=== PATIENT | male | born 1955 | race Caucasian/White ===

== ENCOUNTER 2017-02-12 20:35 | Emergency (ER) | payer MEDICARE, OTHER ==
[~2017-02-12] VITALS: Ht 182.9 cm; Wt 113.4 kg
[~2017-02-12 20:35] MED LIST: AMIO20TA PO; AMLO10TA2 PO; ATOR1TAB21 PO; CITA40TA4 PO; CLOTRIMAZOLE ANTI12 TOP; INSULANT SC; JANU100T PO; LEVO75TA34 PO; LISI-538 PO; LYRI100C10 PO; METF500T PO; MIRA3350 PO; PERC5TAB6 PO; TIZA4CAP3 PO; VITA100066 PO; VITMTA PO; XARE20TA PO
[2017-02-12] MEDS ORDERED: NOVOINJ3 (20:48)
[2017-02-12] MEDS ORDERED: CARB/LEVO PO (20:49)
[2017-02-12] MEDS ORDERED: NS 1,000 ML IV ONE (21:30)
[2017-02-12 21:40] LABS: CALCIUM OXALATE CRYSTALS SMALL
[2017-02-12] MEDS ORDERED: ONDANSETRON 4MG/2ML VIAL (J2405) IV ONE (21:45)
[2017-02-12 21:49] LABS: BASO # 0.1 K/mm3 (0.0-0.2); BASO % 0.4 % (0.0-1.0); EOS # 0.3 K/mm3 (0.0-0.50); EOS % 1.7 % (0.0-3.0); LARGE UNSTAINED CELL # 0.3 K/mm3 (0.0-0.4); LARGE UNSTAINED CELL % 1.6 % (0.0-4.0); LYMPH # 7.3 K/mm3 (1.5-4.5); LYMPH % 39.9 % (24.0-44.0); MEAN CORPUSCULAR HEMOGLOBIN 31.3 pg (27.0-33.0); MEAN CORPUSCULAR HGB CONC 33.9 g/dl (32.0-36.5); MEAN CORPUSCULAR VOLUME 92.3 fl (80.0-96.0); MONO # 0.5 K/mm3 (0.0-0.8); MONO % 2.8 % (0.0-5.0); NEUTROPHILS # 9.9 K/mm3 (1.8-7.7); NEUTROPHILS % 53.7 % (36.0-66.0); PLATELET COUNT, AUTOMATED 180 k/mm3 (150-450); RED CELL DISTRIBUTION WIDTH 13.2 % (11.5-14.5)
[2017-02-12 21:51] LABS: WHITE BLOOD COUNT 18.4 K/mm3 (4.0-10.0)
[2017-02-12 22:01] LABS: ALBUMIN 4.3 GM/DL (3.2-5.2); ALBUMIN/GLOBULIN RATIO 1.19 (1.00-1.93); ALKALINE PHOSPHATASE 146 U/L (45-117); ALT/SGPT 26 U/L (12-78); AMYLASE 41 U/L (25-115); ANION GAP 8 MEQ/L (8-16); AST/SGOT 54 U/L (15-37); BILIRUBIN,DIRECT 0.2 MG/DL (0.0-0.2); BILIRUBIN,TOTAL 0.6 MG/DL (0.2-1.0); BLOOD UREA NITROGEN 17 MG/DL (7-18); CALCIUM LEVEL 9.5 MG/DL (8.8-10.2); CARBON DIOXIDE LEVEL 22 MEQ/L (21-32); CHLORIDE LEVEL 107 MEQ/L (98-107); CREATININE FOR GFR 1.07 MG/DL (0.70-1.30); GLOMERULAR FILTRATION RATE > 60.0 (>49); GLUCOSE, FASTING 150 MG/DL (80-110); MAGNESIUM LEVEL 1.8 MG/DL (1.8-2.4); POTASSIUM SERUM 3.6 MEQ/L (3.5-5.1); SODIUM LEVEL 137 MEQ/L (136-145); TOTAL PROTEIN 7.9 GM/DL (6.4-8.2)
[2017-02-12] MEDS ORDERED: ZOFR4TAB3 PO (22:26)
[2017-02-12 22:48] VITALS: BP 160/74
== END 2017-02-12 23:00 | disposition home or self-care (01) ==
LOC: M ED 22:11
DX: R11.0 Nausea (principal); R19.7 Diarrhea, unspecified
CPT/HCPCS: 80048; 80076; 81001; 82150; 82550; 83690; 83735; 85025; 87507; 96361; 96374; 99283; J2405

== ENCOUNTER 2017-03-02 00:13 | Emergency (ER) | payer MEDICARE, BC, OTHER ==
[~2017-03-02] VITALS: Ht 182.9 cm; Wt 122.5 kg
[~2017-03-02 00:13] MED LIST changes: +CARB/LEVO PO; +NOVOINJ3 SC; +ZOFR4TAB3 PO
[2017-03-02 04:42] VITALS: BP 176/82
== END 2017-03-02 04:44 | disposition home or self-care (01) ==
LOC: EDBD 00:13 → M ED 01:15
DX: T38.3X5A Adverse effect of insulin and oral hypoglycemic [antidiabetic] drugs, initial encounter (principal)

== ENCOUNTER 2017-03-03 23:16 | Inpatient (IN) | payer MEDICARE, BC, OTHER ==
[~2017-03-03] VITALS: Ht 182.9 cm; Wt 119.8 kg
[2017-03-03] MEDS ORDERED: IPRATROPIUM 0.5MG/ALBUTEROL 2.5MG INH SOL UD 3ML (DUONEB)(J7620) As Ordered ONE (23:32)
[2017-03-03] MEDS: IPRATROPIUM 0.5MG/ALBUTEROL 2.5MG INH SOL UD 3ML (DUONEB)(J7620) NEB PRN ×2 (23:42→23:48)
[2017-03-03] MEDS ORDERED: NITROGLYCERIN 2% OINT 1 GM *U/D* PKT TOP ONE (23:45)
[2017-03-03 23:51] LABS: ABG BASE EXCESS 8.7 (-2.0-2.0); ABG HCO3 31.1 MEQ/L (22.0-26.0); ABG PARTIAL PRESSURE CO2 34.9 mmHg (35.0-45.0); ABG PARTIAL PRESSURE O2 91.6 mmHg (75.0-100.0); ABG STANDARD HCO3 32.4 MEQ/L (22.0-26.0); ABG TOTAL CO2 32.2 MEQ/L (23.0-31.0); ABG pH (ARTERIAL) 7.568 UNITS (7.350-7.450)
[2017-03-03 23:53] LABS: BASO % 0.2 % (0.0-1.0); EOS # 0.1 K/mm3 (0.0-0.50); EOS % 0.5 % (0.0-3.0); LARGE UNSTAINED CELL # 0.2 K/mm3 (0.0-0.4); LARGE UNSTAINED CELL % 1.4 % (0.0-4.0); LYMPH # 4.5 K/mm3 (1.5-4.5); LYMPH % 27.8 % (24.0-44.0); MEAN CORPUSCULAR HEMOGLOBIN 31.9 pg (27.0-33.0); MEAN CORPUSCULAR HGB CONC 32.9 g/dl (32.0-36.5); MEAN CORPUSCULAR VOLUME 96.9 fl (80.0-96.0); MONO # 0.3 K/mm3 (0.0-0.8); MONO % 2.1 % (0.0-5.0); NEUTROPHILS # 10.9 K/mm3 (1.8-7.7); NEUTROPHILS % 68.1 % (36.0-66.0); PLATELET COUNT, AUTOMATED 147 k/mm3 (150-450); RED CELL DISTRIBUTION WIDTH 14.2 % (11.5-14.5)
[2017-03-04] VITALS (7 sets, daily range): BP systolic 111–157; BP diastolic 52–74; O2SAT 93
[2017-03-04] MEDS: IPRATROPIUM 0.5MG/ALBUTEROL 2.5MG INH SOL UD 3ML (DUONEB)(J7620) NEB PRN
[2017-03-04 00:27] LABS: ANION GAP 7 MEQ/L (8-16); BLOOD UREA NITROGEN 14 MG/DL (7-18); CALCIUM LEVEL 8.2 MG/DL (8.8-10.2); CARBON DIOXIDE LEVEL 34 MEQ/L (21-32); CHLORIDE LEVEL 96 MEQ/L (98-107); CREATININE FOR GFR 0.88 MG/DL (0.70-1.30); GLOMERULAR FILTRATION RATE > 60.0 (>49); GLUCOSE, FASTING 186 MG/DL (80-110); POTASSIUM SERUM 3.1 MEQ/L (3.5-5.1); SODIUM LEVEL 137 MEQ/L (136-145)
[2017-03-04] MEDS ORDERED: ISOVUE-370 76% 100ML VIAL (Q9967) As Ordered ONE (01:14)
[2017-03-04] MEDS ORDERED: ACETAMINOPHEN TAB 650MG DOSE (2X325MG) As Ordered ONE (01:34)
[2017-03-04] MEDS ORDERED: ACETAMINOPHEN TAB 650MG DOSE (2X325MG) PO ONE (01:45)
--- NOTE | 2017-03-04 02:00 | REPUSA ---
CT angiogram of the chest Clinical statement: severe hypoxia and shortness of breath. Technique: Multiple axial CT images were obtained from the thoracic inlet through the upper abdomen a fter a bolus administration of nonionic intravenous contrast. Coronal and sagittal reconstructions we re also obtained. No comparison is available. Findings: The pulmonary arteries are well-opacified with contrast, with no intraluminal filling defec ts to suggest embolism. The thoracic aorta is unremarkable. Thyroid gland is within normal limits. Th ere is no thoracic lymphadenopathy. There are moderate sized bilateral pleural effusions, with assoc iated compressive atelectasis. Extensive bilateral infiltrates and patchy areas of consolidation are seen throughout the lungs. Limited imaging of the upper abdomen is unremarkable. There are no suspici ous osseous lesions. Impression: 1. No evidence of pulmonary embolism. 2. Diffuse, extensive bilateral infiltrates and consolidation. Although the findings could represent pneumonia. Pulmonary edema or inflammatory process such as ARDS could have this appearance. Clinica l correlation is recommended. 3. Moderate sized bilateral pleural effusions with adjacent compressive atelectasis.
[2017-03-04] MEDS ORDERED: PIPERACILLIN/TAZOBACTAM SOD 3.375 GM in D5W MINI-BAG PLUS 50 ML IV ONE (02:30)
[2017-03-04] MEDS ORDERED: FUROSEMIDE 40 MG/4 ML VIAL (J1940) IV ONE (02:30)
[2017-03-04] MEDS: IPRATROPIUM 0.5MG/ALBUTEROL 2.5MG INH SOL UD 3ML (DUONEB)(J7620) NEB SCH ×6 (02:34→19:59)
[2017-03-04] MEDS ORDERED: AMIO20TA PO (03:29)
[2017-03-04] MEDS ORDERED: CARB25TA PO (03:29)
[2017-03-04] MEDS ORDERED: METO25TA74 PO (03:29)
[2017-03-04] MEDS ORDERED: ONDANSETRON 4MG/2ML VIAL (J2405) IV PRN (03:45)
[2017-03-04] MEDS ORDERED: BISACODYL 10 MG SUPP PR PRN (03:45)
[2017-03-04] MEDS ORDERED: POTASSIUM CHLORIDE 10 MEQ SR TABLET PO ONE ×2 (03:45→14:30)
[2017-03-04] MEDS ORDERED: ALBUTEROL SULFATE 2.5 MG/0.5 ML INH NEB SOLN NEB PRN (04:15)
[2017-03-04] MEDS: LEVOTHYROXINE 0.075 MG TAB (75 MCG) PO SCH (05:28)
[2017-03-04 06:51] LABS: BASO % 0.3 % (0.0-1.0); EOS # 0.2 K/mm3 (0.0-0.50); EOS % 1.2 % (0.0-3.0); LARGE UNSTAINED CELL # 0.2 K/mm3 (0.0-0.4); LARGE UNSTAINED CELL % 1.4 % (0.0-4.0); LYMPH # 3.7 K/mm3 (1.5-4.5); MEAN CORPUSCULAR HEMOGLOBIN 32.5 pg (27.0-33.0); MEAN CORPUSCULAR HGB CONC 33.8 g/dl (32.0-36.5); MEAN CORPUSCULAR VOLUME 95.9 fl (80.0-96.0); MONO # 0.4 K/mm3 (0.0-0.8); MONO % 2.5 % (0.0-5.0); NEUTROPHILS # 9.4 K/mm3 (1.8-7.7); NEUTROPHILS % 67.6 % (36.0-66.0); PLATELET COUNT, AUTOMATED 141 k/mm3 (150-450); RED CELL DISTRIBUTION WIDTH 14.3 % (11.5-14.5); WHITE BLOOD COUNT 13.8 K/mm3 (4.0-10.0)
[2017-03-04 07:21] LABS: ALBUMIN 2.1 GM/DL (3.2-5.2); ALBUMIN/GLOBULIN RATIO 0.54 (1.00-1.93); ALKALINE PHOSPHATASE 98 U/L (45-117); ALT/SGPT 34 U/L (12-78); ANION GAP 7 MEQ/L (8-16); AST/SGOT 27 U/L (15-37); BILIRUBIN,TOTAL 0.9 MG/DL (0.2-1.0); BLOOD UREA NITROGEN 13 MG/DL (7-18); CALCIUM LEVEL 7.5 MG/DL (8.8-10.2); CARBON DIOXIDE LEVEL 35 MEQ/L (21-32); CHLORIDE LEVEL 97 MEQ/L (98-107); CREATININE FOR GFR 0.96 MG/DL (0.70-1.30); GLOMERULAR FILTRATION RATE > 60.0 (>49); GLUCOSE, FASTING 193 MG/DL (80-110); SODIUM LEVEL 139 MEQ/L (136-145)
[2017-03-04 07:34] LABS: POTASSIUM SERUM 2.8 MEQ/L (3.5-5.1)
[2017-03-04] MEDS: POTASSIUM CHLORIDE 10 MEQ SR TABLET PO SCH ×2 (07:51→21:30)
--- NOTE | 2017-03-04 08:05 | IPNPDOC ---
Subjective Date Seen The patient was seen on 03/04/17. Subjective Chief Complaint/HPI The patient is a 62-year-old male admitted with a reason for visit of Acute Respiratory Failure W Hypoxia. General: Denies: ROS Unobtainable, Chills, Night Sweats, Fatigue, Malaise, Normal Appetite, Other Symptoms Constitutional: Denies: Chills, Fever, Malaise, Night Sweats, Weakness, Fatigue , Weight Loss, Lethargy, Other Eyes: Denies: Pain, Vision change, Conjunctivae inflammation, Eyelid inflammation, Redness, Other ENT: Denies: Head Aches, Ear Pain, Dysphagia, Sinus Congestion, Post Nasal Drip , Sore Throat, Epistaxis, Other Symptoms Skin: Denies: Rash, Lesions, Jaundice, Bruising, Itching, Dry, Breakdown, Nail Changes, Other Pulmonary: Reports: Dyspnea, Cough, Denies: Pleuritic Chest Pain, Other Symptoms Cardiovascular: Denies: Chest Pain, Palpitations, Orthopnea, Paroxysmal Noc. Dyspnea, Edema, Lt Headedness, Other Symptoms Gastrointestinal: Denies: Nausea, Vomiting, Abdominal Pain, Diarrhea, Constipation, Melena, Hematochezia, Other Symptoms Objective Physical Examination General Exam: Positive: Alert, Cooperative, No Acute Distress Eye Exam: Positive: PERRLA, Conjunctiva & lids normal, EOMI, Negative: Sclera icteric ENT Exam: Positive: Atraumatic Neck Exam: Positive: Supple Chest Exam: Positive: Normal air movement (b/l basilar crackles), Other Heart Exam: Positive: Rate Normal, Irregular Rhythm Telemetry: Positive: Atrial fibrillation Abdomen Exam: Positive: Normal bowel sounds, Soft, Other (obese), Negative: Tenderness Extremity Exam: Positive: Edema Psych Exam: Positive: Mental status NL, Mood NL, Oriented x 3 Assessment /Plan Problems (1) CHF exacerbation Status: Acute Response to Treatment: Improving Discussed With: Patient Problem Specific Plan: Monitor Clinically, Repeat Labs, Repeat Tests Problem Text: iv lasix, i/o's, daily weights, echo pending patient admits to increased fluid intake over last week states had 'stomach bug' - diet exclusively soup and gatorade (2) A-fib Status: Chronic Discussed With: Patient Problem Specific Plan: Monitor Clinically Problem Text: amiodarone, beta diana xarelto for a/c rate controlled (3) Dyslipidemia Status: Chronic Discussed With: Patient Problem Text: lipitor (4) Hypertension Status: Chronic Discussed With: Patient Problem Specific Plan: Monitor Clinically Problem Text: norvasc, lisinopril, metoprolol suc. (5) Hypothyroidism Status: Chronic Discussed With: Patient Problem Specific Plan: Monitor Clinically Problem Text: continue synthroid tsh levels pending Plan/VTE VTE Prophylaxis Ordered?: Yes (xarelto) Plan Diet: Continue Current Activity: Continue Current Medications: Replete Electrolytes PO Respiratory: Wean Oxygen Diagnostics: Repeat Labs in AM, TTE Anticipated Discharge: Home patient states has had excessive fluid intake over the past week treating for chf exacerbation h&p still available, remainder of medical history from patient and medications Disposition Anticipating 3-4 days for diuresis for decomp heart failure VS, I&O, 24H, Fishbone Vital Signs/I&O Vital Signs Date Time Temp Pulse Resp B/P (MAP) Pulse Ox O2 Delivery O2 Flow Rate FiO2 03/04/17 07:30 98.6 70 18 111/52 (71) 91 Comfort Flow 15.0 100 I&O- Last 24 Hours up to 6 AM 03/04/17 06:00 Intake Total 60 ml Output Total 150 ml Balance -90 ml Laboratory Data 24H LABS Laboratory Tests 2 03/03/17 23:36: Blood Gas Bicarbonate Standard 32.4H, Arterial Blood pH 7.568H, Arterial Blood Partial Pressure CO2 34.9L, Arterial Blood Partial Pressure O2 91.6, Arterial Blood Total CO2 32.2H, Arterial Blood HCO3 31.1H, Arterial Blood Base Excess 8.7H, Arterial Blood Oxygen Saturation 96.2 03/03/17 23:45: White Blood Count 16.0H, Red Blood Count 3.58L, Hemoglobin 11.4L, Hematocrit 34.7L, Mean Corpuscular Volume 96.9H, Mean Corpuscular Hemoglobin 31.9, Mean Corpuscular Hemoglobin Concent 32.9, Red Cell Distribution Width 14.2, Platelet Count 147L, Neutrophils (%) (Auto) 68.1H, Lymphocytes (%) (Auto) 27.8, Monocytes (%) (Auto) 2.1, Eosinophils (%) (Auto) 0.5, Basophils (%) (Auto) 0.2, Neutrophils # (Auto) 10.9H, Lymphocytes # (Auto) 4.5, Monocytes # (Auto) 0.3, Eosinophils # (Auto) 0.1, Basophils # (Auto) 0.0, Large Unclassified Cells % 1.4 , Large Unclassified Cells # 0.2, Anion Gap 7L, Glomerular Filtration Rate > 60.0, Blood Urea Nitrogen 14, Creatinine 0.88, Sodium Level 137, Potassium Level 3.1L, Chloride Level 96L, Carbon Dioxide Level 34H, Calcium Level 8.2L, Total Creatine Kinase 294, Creatine Kinase MB 2.9, Creatine Kinase MB Relative Index 0.98, Troponin I 0.06, B-Type Natriuretic Peptide 548H 03/04/17 06:39: White Blood Count 13.8H, Red Blood Count 3.22L, Hemoglobin 10.4L, Hematocrit 30.9L, Mean Corpuscular Volume 95.9, Mean Corpuscular Hemoglobin 32.5, Mean Corpuscular Hemoglobin Concent 33.8, Red Cell Distribution Width 14.3, Platelet Count 141L, Neutrophils (%) (Auto) 67.6H, Lymphocytes (%) (Auto) 27.0, Monocytes (%) (Auto) 2.5, Eosinophils (%) (Auto) 1.2, Basophils (%) (Auto) 0.3, Neutrophils # (Auto) 9.4H, Lymphocytes # (Auto) 3.7, Monocytes # (Auto) 0.4, Eosinophils # (Auto) 0.2, Basophils # (Auto) 0.0, Large Unclassified Cells % 1.4 , Large Unclassified Cells # 0.2, Anion Gap 7L, Glomerular Filtration Rate > 60.0, Blood Urea Nitrogen 13, Creatinine 0.96, Sodium Level 139, Potassium Level 2.8*L, Chloride Level 97L, Carbon Dioxide Level 35H, Calcium Level 7.5L, Total Creatine Kinase 258, Troponin I 0.07, Lactic Acid Level 3.2*H, Aspartate Amino Transf (AST/SGOT) 27, Alanine Aminotransferase (ALT/SGPT) 34, Alkaline Phosphatase 98, Total Bilirubin 0.9, Total Protein 6.0L, Albumin 2.1L, Albumin/ Globulin Ratio 0.54L CBC/BMP Laboratory Tests 03/03/17 23:45 Red Blood Count 3.58 L, Mean Corpuscular Volume 96.9 H, Mean Corpuscular Hemoglobin 31.9, Mean Corpuscular Hemoglobin Concent 32.9, Red Cell Distribution Width 14.2, Neutrophils (%) (Auto) 68.1 H, Lymphocytes (%) (Auto) 27.8, Monocytes (%) (Auto) 2.1, Eosinophils (%) (Auto) 0.5, Basophils (%) (Auto ) 0.2, Neutrophils # (Auto) 10.9 H, Lymphocytes # (Auto) 4.5, Monocytes # (Auto ) 0.3, Eosinophils # (Auto) 0.1, Basophils # (Auto) 0.0, Calcium Level 8.2 L, Total Creatine Kinase 294 03/04/17 06:39 Red Blood Count 3.22 L, Mean Corpuscular Volume 95.9, Mean Corpuscular Hemoglobin 32.5, Mean Corpuscular Hemoglobin Concent 33.8, Red Cell Distribution Width 14.3, Neutrophils (%) (Auto) 67.6 H, Lymphocytes (%) (Auto) 27.0, Monocytes (%) (Auto) 2.5, Eosinophils (%) (Auto) 1.2, Basophils (%) (Auto ) 0.3, Neutrophils # (Auto) 9.4 H, Lymphocytes # (Auto) 3.7, Monocytes # (Auto) 0.4, Eosinophils # (Auto) 0.2, Basophils # (Auto) 0.0, Calcium Level 7.5 L, Total Creatine Kinase 258, Aspartate Amino Transf (AST/SGOT) 27, Alanine Aminotransferase (ALT/SGPT) 34, Alkaline Phosphatase 98, Total Bilirubin 0.9, Total Protein 6.0 L, Albumin 2.1 L Microbiology Microbiology 03/03/17 Blood Culture, Received Pending 03/03/17 Blood Culture, Received Pending 03/03/17 Respiratory Virus Panel (PCR) (RYLEE), Received Pending 03/03/17 Influenza Virus Type A Antigen - Final, Complete 03/03/17 Influenza Virus Type B Antigen - Final, Complete XI ANGLIN MD March 04, 2017 08:05
[2017-03-04] MEDS: FUROSEMIDE 40 MG/4 ML VIAL (J1940) IV SCH ×3 (08:29→21:28)
[2017-03-04] MEDS: SENOKOT S TAB PO SCH ×2 (08:29→21:31)
[2017-03-04 08:32] LABS: MAGNESIUM LEVEL 2.3 MG/DL (1.8-2.4)
--- NOTE | 2017-03-04 11:02 | REP ---
PORTABLE CHEST: HISTORY: Dyspnea and cough. COMPARISON: 01/05/2016 The technique utilized in obtaining the radiograph has magnified the cardiac silhouette and accentuated the interstitial markings. Interstitial and alveolar opacities are present. There is cardiomegaly. There is mild left CP angle blunting. IMPRESSION: CHF versus pneumonia. Correlate clinically. Signed by Seth Vega DO 03/04/2017 01:32 P
[2017-03-04 13:44] LABS: POTASSIUM SERUM 2.8 MEQ/L (3.5-5.1)
[2017-03-04 14:12] LABS: MAGNESIUM LEVEL 2.2 MG/DL (1.8-2.4)
--- NOTE | 2017-03-04 14:48 | ECGEPIP ---
Stationary ECG Study [facility] - ED Test Date: 2017-03-03 Pat Name: KEELY MELENDEZ Department: Room: [place] [address] Gender: M Director Funeral: : 1955 Requested By: ART Varner Order Number: [id number] Reading MD: Whitley Morrow Measurements Intervals [place] Rate: 77 P: 76 MO: 137 QRS: 27 QRSD: 105 T: 60 QT: 383 QTc: 435 Interpretive Statements SINUS RHYTHM WITH OCCASIONAL VENTRICULAR PREMATURE COMPLEXES NONSPECIFIC T-WAVE ABNORMALITY Electronically Signed On 03-04-2017 14:47:46 EDT by Whitley Morrow
--- NOTE | 2017-03-04 17:30 | HPE ---
DATE OF ADMISSION: 03/04/2017 PRIMARY CARE PROVIDER: Dr. Rand CHIEF COMPLAINT: Increasing shortness of breath and worsening cough and increasing bilateral leg swelling over the past 4 to 5 days. PAST MEDICAL HISTORY: 1. Obesity. 2. Obstructive sleep apnea on continuous positive airway pressure (CPAP). 3. Chronic lymphocytic leukemia. 4. Atrial fibrillation, status post ablation. 5. Hypertension. 6. Hypothyroidism. 7. Hyperlipidemia. 8. 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 9. Chronic back pain. 10. History of dual AV malformations. 11. Parkinson's disease. 12. Neuropathy. 13. Bilateral hand tremors. HISTORY OF PRESENT ILLNESS: This is a 62-year-old male who has been sick for the past 1 month. Initially, he started on the 07 of February with a stomach virus where he was having ongoing diarrhea, nausea, dry heaves for about 16 days. At that time, he was unable to keep any solid food down and was only drinking liquids, mostly Gatorade. He got better after that and then started improving; however, for the past week he has again started feeling bad and then for the past five days he has noticed increasing swelling of both of his lower extremities, increasing difficulty in breathing, and persistent cough, unable to lie down flat. On arrival to the emergency department, he was noted to be saturating about 65% on room air. He was immediately started on non-rebreather mask with 15 liters with improvement in saturation to over 90%. The patient was started on aggressive nebulizers and also given Lasix. After treatment he significantly felt better and the patient was able to be weaned down to aerosol mask. The patient had a CT scan of the chest done with contrast, which was negative for any pulmonary embolus, but showed bilateral infiltrates, extensive with consolidations, could be pneumonia or pulmonary edema or any inflammatory process like acute respiratory distress syndrome. There was moderate bilateral pleural effusions and compressive atelectasis. The patient was admitted to the hospitalist service for congestive heart failure (CHF) exacerbation and possible pneumonia. PAST SURGICAL HISTORY: 1. Cardiac ablation in 2003 and 2007 for atrial fibrillation. 2. Laminectomy and fusion in the lumbar region in 2013. 3. Hernia repair. ADDITIONAL PAST MEDICAL HISTORY: 1. History of laminectomy at the L2-3 level. 2. Bilateral radiculopathy. 3. Bilateral foot drop from peripheral neuropathy and diabetic neuropathy. 4. History of flaccid paralysis of the lower legs. 5. Bladder dysfunction. ALLERGIES: METHADONE, PROPOXYPHENE. HOME MEDICATIONS: - amiodarone 200 mg by mouth daily - amlodipine 10 mg daily - atorvastatin 20 mg daily - levodopa carbidopa one tablet by mouth daily - cholecalciferol 1000 units by mouth daily - citalopram 40 mg by mouth daily - Lantus insulin 45 units at bedtime - Aspart insulin as per sliding scale - Synthroid 75 mcg by mouth daily - Lisinopril 20 mg by mouth daily - metoprolol succinate 25 mg by mouth daily - multivitamin one tablet by mouth daily - Xarelto 20 mg by mouth daily - Januvia 100 mg by mouth daily SOCIAL HISTORY: The patient does not smoke, abuse alcohol or recreational drugs. FAMILY HISTORY: Nothing pertinent. REVIEW OF SYSTEMS: All 10-point review of systems negative except as mentioned in the history of present illness. PHYSICAL EXAMINATION: VITAL SIGNS: Temperature 99.8, pulse 84, respiratory rate 16, blood pressure 147/67, pulse oximetry 63% on room air, which improved to 93% with non- rebreather mask at 15 liters oxygen. GENERAL: The patient is awake, alert, oriented times three. Sitting up and in no acute distress. HEENT: Normocephalic, atraumatic. Moist mucous membranes. Anicteric eyes. CHEST: Bilateral diffuse crackles present. Poor air entry. CARDIOVASCULAR: S1, S2. Regular. No rub, murmur, or gallop. ABDOMEN: Obese, soft, nontender. Bowel sounds present. EXTREMITIES: Bipedal edema. NECK: Jugular venous distention (JVD) distended. LABORATORY DATA: Sodium 137, potassium 3.1, chloride 96, bicarbonate 34, BUN 14, creatinine 0.88, glucose 186, calcium 8.2, BNP 548. WBC 16, hemoglobin 11.4, platelets 147. CT angio of the chest was negative for pulmonary embolus but did show diffuse bilateral infiltrates and consolidations, which could represent pneumonia or congestive heart failure (CHF) or acute respiratory distress syndrome. ASSESSMENT AND PLAN: This is a 62-year-old male with multiple medical comorbidities admitted for acute respiratory failure with hypoxia and exacerbation of congestive heart failure. PLAN: 1. For congestive heart failure, we will continue the patient on Lasix IV every 6 hours. Continue with oxygen supplementation, 2 gram sodium diet, diabetic diet and fluid restriction 1.5 liters. We will get an echocardiogram to find out heart failure. 2. Chronic lymphocytic leukemia. The patient has chronic leukocytosis, but is stable at this point. We will continue to monitor. The patient follows with Dr. Dasia Falcon. 3. Acute hypoxic respiratory failure due to fluid overload and congestive heart failure exacerbation plus/minus pneumonia. We will continue with oxygen supplementation. 4. Possible pneumonia. We will continue with Zosyn. 5. Hypothyroidism. We will continue with Synthroid. 6. Atrial fibrillation. We will continue with amiodarone and Xarelto. Also, we will continue with metoprolol succinate 25 mg for rate control. 7. Diabetes. We will continue with Levemir and Lispro insulin. 8. Hypertension. We will continue with Lisinopril 20 mg, amlodipine 10 mg, and metoprolol. 9. Hyperlipidemia. WE will continue with atorvastatin. 10. Parkinson's disease. We will continue with carbidopa levodopa one tablet by mouth daily. 11. Chronic back pain. The patient is not on any pain medications. We will continue to monitor. 12. Deep vein thrombosis (DVT) prophylaxis. The patient is on Xarelto. 13. Gastrointestinal prophylaxis has been ordered. [facility]
[2017-03-04] MEDS: LISINOPRIL 20 MG TAB PO SCH (18:04)
[2017-03-04] MEDS: SINEMET 25-100 MG TAB PO SCH (18:04)
[2017-03-04] MEDS: AMIODARONE 200 MG TAB (PACERONE) PO SCH (18:04)
[2017-03-04] MEDS: RIVAROXABAN 20 MG TAB (XARELTO) PO SCH (18:05)
[2017-03-04] MEDS: CitaloPRAM (CeleXA) 20 MG TAB PO SCH (18:05)
[2017-03-04] MEDS: amLODIPine 10 MG TAB PO SCH (18:05)
[2017-03-04] MEDS: ATORVASTATIN 20 MG TAB PO SCH (18:05)
[2017-03-04] MEDS: MULTIVITAMINS/MINERALS THERAP 1 TAB PO SCH (18:05)
[2017-03-04] MEDS: METOPROLOL SUCC *XL* 25MG TAB (TopROL *XL*) PO SCH (18:06)
[2017-03-04] MEDS ORDERED: GLUCOSE 4 GM CHEW TABLET PO PRN (21:00)
[2017-03-04] MEDS ORDERED: DEXTROSE 50% 50 ML SYRINGE IV PRN (21:00)
[2017-03-04] MEDS ORDERED: GLUCAGON FOR INJ 1 MG VIAL (J1610) SC PRN (21:00)
[2017-03-04] MEDS: LEVEMIR (INSULIN DETEMIR) 1 UNITS/0.01ML SC SCH (21:29)
[2017-03-04] MEDS: HumaLOG INSULIN (NovoLOG) PER UNIT SC SCH (21:29)
[2017-03-05] MEDS: IPRATROPIUM 0.5MG/ALBUTEROL 2.5MG INH SOL UD 3ML (DUONEB)(J7620) NEB SCH ×4 (01:58→22:19)
[2017-03-05 01:59] VITALS: O2SAT 97
[2017-03-05] MEDS: FUROSEMIDE 40 MG/4 ML VIAL (J1940) IV SCH ×3 (04:07→18:57)
[2017-03-05 05:00] VITALS: BP 146/77
[2017-03-05 05:22] LABS: BASO % 0.3 % (0.0-1.0); EOS # 0.4 K/mm3 (0.0-0.50); EOS % 3.4 % (0.0-3.0); LARGE UNSTAINED CELL # 0.2 K/mm3 (0.0-0.4); LARGE UNSTAINED CELL % 1.4 % (0.0-4.0); LYMPH # 4.4 K/mm3 (1.5-4.5); LYMPH % 33.8 % (24.0-44.0); MEAN CORPUSCULAR HEMOGLOBIN 32.6 pg (27.0-33.0); MEAN CORPUSCULAR HGB CONC 33.5 g/dl (32.0-36.5); MEAN CORPUSCULAR VOLUME 97.3 fl (80.0-96.0); MONO # 0.4 K/mm3 (0.0-0.8); MONO % 3.1 % (0.0-5.0); NEUTROPHILS # 7.5 K/mm3 (1.8-7.7); NEUTROPHILS % 57.9 % (36.0-66.0); PLATELET COUNT, AUTOMATED 174 k/mm3 (150-450); RED CELL DISTRIBUTION WIDTH 14.2 % (11.5-14.5)
[2017-03-05] MEDS: LEVOTHYROXINE 0.075 MG TAB (75 MCG) PO SCH (05:35)
[2017-03-05 05:37] LABS: ANION GAP 6 MEQ/L (8-16); BLOOD UREA NITROGEN 11 MG/DL (7-18); CALCIUM LEVEL 7.8 MG/DL (8.8-10.2); CARBON DIOXIDE LEVEL 38 MEQ/L (21-32); CHLORIDE LEVEL 98 MEQ/L (98-107); CREATININE FOR GFR 0.83 MG/DL (0.70-1.30); GLOMERULAR FILTRATION RATE > 60.0 (>49); GLUCOSE, FASTING 119 MG/DL (80-110); SODIUM LEVEL 142 MEQ/L (136-145)
[2017-03-05] MEDS ORDERED: POTASSIUM CHLORIDE 10 MEQ SR TABLET PO ONE (06:30)
[2017-03-05 06:36] LABS: MAGNESIUM LEVEL 2.3 MG/DL (1.8-2.4)
[2017-03-05 08:00] VITALS: BP 130/56
--- NOTE | 2017-03-05 08:24 | ECHO ---
DATE OF PROCEDURE: 03/04/2017 REFERRING PHYSICIAN: Dr. Luu. INDICATION: Congestive heart failure and chest pain. The patient measures 72 inches and weighs 270 pounds. DIMENSIONS: IVS: 1.2 LV: 5.5 LVPW: 1.3 LA: 4.9 Aorta: 3.4 Ascending aorta: 3.8 RV: 3.9 LV systolic: 3.1 FINDINGS: The study is of fair technical quality corresponding to patient's body habitus. Left ventricle is normal size and systolic function with estimated EF around 65%. Based on fair technical quality, I cannot rule out subtle wall motion abnormalities. Right ventricle appears dilated and at least mildly hypokinetic. Both atria are at least moderately enlarged. Right atrium appears larger than left. Aortic valve is tricuspid and appears normal. Mitral valve has degenerative abnormalities with mitral annular calcifications. Tricuspid valve appears normal. Pulmonic valve was not well seen. Inferior vena cava is dilated but there is some collapse with respiration indicative of at least mildly elevated central venous pressure. Aortic root and visualized segment of ascending aorta is mildly dilated (maximum diameter 3.8cm). Aortic arch and abdominal aorta were not well seen. Doppler interrogation reveals no significant aortic stenosis or insufficiency. There is also no significant mitral valve disease, maybe trace mitral insufficiency. There is probably severe tricuspid insufficiency. Calculated pulmonary artery pressure is at least in 80s corresponding to severe pulmonary hypertension. Mitral inflow pattern and tissue Doppler imaging of mitral annulus are somewhat inconclusive but most likely demonstrate grade 2 diastolic dysfunction. This would be indicative of elevated LVEDP. CONCLUSIONS: 1. Study is of fair technical quality. 2. Normal LV size with mild LVH and preserved LV systolic function. Probably grade 2 diastolic dysfunction. 3. No hemodynamically significant aortic and mitral valve disease. 4. Severe tricuspid insufficiency. 5. Elevated central venous pressure. 6. Suggestive of severe pulmonary hypertension. 7. Biatrial enlargement. 8. Dilated hypokinetic right ventricle. 9. Mildly dilated ascending aorta (3.8cm) COMMENT: Subacute bacterial endocarditis (SBE) prophylaxis is not recommended. MTDD
[2017-03-05] MEDS: SENOKOT S TAB PO SCH ×3 (08:42→22:13)
--- NOTE | 2017-03-05 09:39 | REP ---
CHEST, TWO VIEWS: Two views of the chest are performed and compared to a prior study of 03/03/2017. There is cardiomegaly. There is improvement of diffuse bilateral infiltrates. There are small effusions. There are degenerative changes of the spine. IMPRESSION: Improved diffuse bilateral infiltrates. Small pleural effusions bilaterally. Signed by Aidan Mast MD 03/06/2017 04:00 P
[2017-03-05] MEDS: POTASSIUM CHLORIDE 10 MEQ SR TABLET PO SCH ×2 (09:55→22:13)
[2017-03-05] MEDS: HumaLOG INSULIN (NovoLOG) PER UNIT SC SCH ×4 (09:55→21:00)
[2017-03-05] MEDS ORDERED: SLF 3 ML SYR IV PRN (10:00)
[2017-03-05 12:00] VITALS: BP 115/70
--- NOTE | 2017-03-05 12:11 | IPNPDOC ---
Subjective Date Seen The patient was seen on 03/05/17. Subjective Chief Complaint/HPI The patient is a 62-year-old male admitted with a reason for visit of Acute Respiratory Failure W Hypoxia. General: Denies: ROS Unobtainable, Chills, Night Sweats, Fatigue, Malaise, Normal Appetite, Other Symptoms Constitutional: Denies: Chills, Fever, Malaise, Night Sweats, Weakness, Fatigue , Weight Loss, Lethargy, Other Eyes: Denies: Pain, Vision change, Conjunctivae inflammation, Eyelid inflammation, Redness, Other ENT: Denies: Head Aches, Ear Pain, Dysphagia, Sinus Congestion, Post Nasal Drip , Sore Throat, Epistaxis, Other Symptoms Skin: Denies: Rash, Lesions, Jaundice, Bruising, Itching, Dry, Breakdown, Nail Changes, Other Pulmonary: Reports: Dyspnea, Denies: Cough, Pleuritic Chest Pain, Other Symptoms Cardiovascular: Denies: Chest Pain, Palpitations, Orthopnea, Paroxysmal Noc. Dyspnea, Edema, Lt Headedness, Other Symptoms Gastrointestinal: Denies: Nausea, Vomiting, Abdominal Pain, Diarrhea, Constipation, Melena, Hematochezia, Other Symptoms Genitourinary: Denies: Dysuria, Frequency, Incontinence, Hematuria, Retention, Other Symptoms Hematologic: Denies: Bruising, Bleeding Excessively, Petecchia, Purpura, Enlarged Lymph Nodes, Other Hematologic Objective Physical Examination General Exam: Positive: Alert, Cooperative, No Acute Distress Eye Exam: Positive: PERRLA, Conjunctiva & lids normal, EOMI, Negative: Sclera icteric ENT Exam: Positive: Atraumatic Neck Exam: Positive: Supple Chest Exam: Positive: Normal air movement (b/l basilar crackles), Other, Negative: Clear to auscultation Heart Exam: Positive: Rate Normal, Irregular Rhythm Telemetry: Positive: Atrial fibrillation Abdomen Exam: Positive: Normal bowel sounds, Soft, Other (obese), Negative: Tenderness Extremity Exam: Positive: Edema Psych Exam: Positive: Mental status NL, Mood NL, Oriented x 3 Assessment /Plan Problems (1) CHF exacerbation Status: Acute Response to Treatment: Improving Discussed With: Patient Problem Specific Plan: Monitor Clinically, Repeat Labs, Repeat Tests Problem Text: iv lasix, i/o's, daily weights echo = grade 2 diastolic dysfunction, severe TR, biatrial enlargement, suggestive of severe pulmonary hypertension patient admits to increased fluid intake over last week states had 'stomach bug' - diet exclusively soup and gatorade (2) A-fib Status: Chronic Discussed With: Patient Problem Specific Plan: Monitor Clinically Problem Text: amiodarone, beta diana xarelto for a/c rate controlled (3) Dyslipidemia Status: Chronic Discussed With: Patient Problem Text: lipitor (4) Hypertension Status: Chronic Discussed With: Patient Problem Specific Plan: Monitor Clinically Problem Text: norvasc, lisinopril, metoprolol suc. (5) Hypothyroidism Status: Chronic Discussed With: Patient Problem Specific Plan: Monitor Clinically Problem Text: continue synthroid tsh levels pending (6) JENNIFER on CPAP Status: Chronic Discussed With: Patient Problem Specific Plan: Monitor Clinically (7) CLL (chronic lymphocytic leukemia) Status: Chronic Discussed With: Patient Problem Specific Plan: Monitor Clinically, Repeat Labs (8) Diabetes Status: Chronic Discussed With: Patient Problem Specific Plan: Monitor Clinically, Repeat Labs Problem Text: insulin dependent with complications - retinopathy, retinal bleeding (9) Parkinsons Status: Chronic Discussed With: Patient Problem Specific Plan: Monitor Clinically Problem Text: with chronic hand tremors as per patient (10) AVM (arteriovenous malformation) Status: Chronic Discussed With: Patient Problem Specific Plan: Monitor Clinically Problem Text: 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 Wean O2 - patient on room air at home. Replete electrolytes as needed. Daily I/O's, daily weights. VS, I&O, 24H, Fishbone Vital Signs/I&O Vital Signs Date Time Temp Pulse Resp B/P (MAP) Pulse Ox O2 Delivery O2 Flow Rate FiO2 03/05/17 12:02 Nasal Cannula 12.0 96 03/05/17 10:00 94 03/05/17 08:00 98.8 82 20 130/56 (80) I&O- Last 24 Hours up to 6 AM 03/05/17 06:00 Intake Total 1440 ml Output Total 6725 ml Balance -5285 ml Laboratory Data 24H LABS Laboratory Tests 2 03/04/17 13:16: Magnesium Level 2.2 03/04/17 20:30: Bedside Glucose (Misc Panel) 329H 03/05/17 04:31: Magnesium Level 2.3, White Blood Count 13.0H, Red Blood Count 3.47L, Hemoglobin 11.3L, Hematocrit 33.7L, Mean Corpuscular Volume 97.3H, Mean Corpuscular Hemoglobin 32.6, Mean Corpuscular Hemoglobin Concent 33.5, Red Cell Distribution Width 14.2, Platelet Count 174, Neutrophils (%) (Auto) 57.9, Lymphocytes (%) (Auto) 33.8, Monocytes (%) (Auto) 3.1, Eosinophils (%) (Auto) 3.4H, Basophils (%) (Auto) 0.3, Neutrophils # (Auto) 7.5, Lymphocytes # (Auto) 4.4, Monocytes # (Auto) 0.4, Eosinophils # (Auto) 0.4, Basophils # (Auto) 0.0, Large Unclassified Cells % 1.4, Large Unclassified Cells # 0.2, Anion Gap 6L, Glomerular Filtration Rate > 60.0, Blood Urea Nitrogen 11, Creatinine 0.83, Sodium Level 142, Potassium Level 3.0L, Chloride Level 98, Carbon Dioxide Level 38H, Calcium Level 7.8L CBC/BMP Laboratory Tests 03/04/17 13:16 03/05/17 04:31 Red Blood Count 3.47 L, Mean Corpuscular Volume 97.3 H, Mean Corpuscular Hemoglobin 32.6, Mean Corpuscular Hemoglobin Concent 33.5, Red Cell Distribution Width 14.2, Neutrophils (%) (Auto) 57.9, Lymphocytes (%) (Auto) 33.8, Monocytes (%) (Auto) 3.1, Eosinophils (%) (Auto) 3.4 H, Basophils (%) ( Auto) 0.3, Neutrophils # (Auto) 7.5, Lymphocytes # (Auto) 4.4, Monocytes # (Auto ) 0.4, Eosinophils # (Auto) 0.4, Basophils # (Auto) 0.0, Calcium Level 7.8 L Microbiology Microbiology 03/03/17 Blood Culture - Preliminary, Resulted No growth after 24 hours . All specim... 03/03/17 Blood Culture - Preliminary, Resulted No growth after 24 hours . All specim... 03/04/17 MRSA Screen, Received Pending 03/03/17 Respiratory Virus Panel (PCR) (RYLEE) - Final, Complete 03/03/17 Influenza Virus Type A Antigen - Final, Complete 03/03/17 Influenza Virus Type B Antigen - Final, Complete XI ANGLIN MD March 05, 2017 12:11
[2017-03-05] MEDS: SLF 3 ML SYR IV SCH ×2 (14:00→22:14)
[2017-03-05 16:00] VITALS: BP 120/56
[2017-03-05] MEDS: amLODIPine 10 MG TAB PO SCH (17:17)
[2017-03-05] MEDS: RIVAROXABAN 20 MG TAB (XARELTO) PO SCH (17:17)
[2017-03-05] MEDS: CitaloPRAM (CeleXA) 20 MG TAB PO SCH (17:18)
[2017-03-05] MEDS: AMIODARONE 200 MG TAB (PACERONE) PO SCH (17:18)
[2017-03-05] MEDS: SINEMET 25-100 MG TAB PO SCH (17:18)
[2017-03-05] MEDS: ATORVASTATIN 20 MG TAB PO SCH (17:18)
[2017-03-05] MEDS: METOPROLOL SUCC *XL* 25MG TAB (TopROL *XL*) PO SCH (17:18)
[2017-03-05] MEDS: MULTIVITAMINS/MINERALS THERAP 1 TAB PO SCH (17:19)
[2017-03-05] MEDS: LISINOPRIL 20 MG TAB PO SCH (17:19)
[2017-03-05 19:55] VITALS: BP 149/74
[2017-03-05] MEDS: LEVEMIR (INSULIN DETEMIR) 1 UNITS/0.01ML SC SCH (22:14)
[2017-03-06 00:25] VITALS: BP 146/71
[2017-03-06] MEDS: IPRATROPIUM 0.5MG/ALBUTEROL 2.5MG INH SOL UD 3ML (DUONEB)(J7620) NEB SCH ×4 (02:51→21:08)
[2017-03-06] MEDS: FUROSEMIDE 40 MG/4 ML VIAL (J1940) IV SCH ×3 (03:34→18:09)
[2017-03-06 04:18] VITALS: BP 139/75
[2017-03-06 05:55] LABS: BASO % 0.5 % (0.0-1.0); EOS # 0.5 K/mm3 (0.0-0.50); EOS % 4.9 % (0.0-3.0); LARGE UNSTAINED CELL # 0.2 K/mm3 (0.0-0.4); LARGE UNSTAINED CELL % 1.7 % (0.0-4.0); LYMPH # 3.7 K/mm3 (1.5-4.5); LYMPH % 36.3 % (24.0-44.0); MEAN CORPUSCULAR HEMOGLOBIN 31.9 pg (27.0-33.0); MEAN CORPUSCULAR HGB CONC 32.6 g/dl (32.0-36.5); MEAN CORPUSCULAR VOLUME 97.7 fl (80.0-96.0); MONO # 0.4 K/mm3 (0.0-0.8); MONO % 3.7 % (0.0-5.0); NEUTROPHILS # 5.4 K/mm3 (1.8-7.7); PLATELET COUNT, AUTOMATED 209 k/mm3 (150-450); RED CELL DISTRIBUTION WIDTH 14.2 % (11.5-14.5); WHITE BLOOD COUNT 10.2 K/mm3 (4.0-10.0)
[2017-03-06] MEDS: LEVOTHYROXINE 0.075 MG TAB (75 MCG) PO SCH (06:04)
[2017-03-06] MEDS: SLF 3 ML SYR IV SCH ×3 (06:04→20:07)
[2017-03-06 06:14] LABS: ANION GAP 6 MEQ/L (8-16); BLOOD UREA NITROGEN 14 MG/DL (7-18); CALCIUM LEVEL 7.8 MG/DL (8.8-10.2); CARBON DIOXIDE LEVEL 35 MEQ/L (21-32); CHLORIDE LEVEL 100 MEQ/L (98-107); CREATININE FOR GFR 0.72 MG/DL (0.70-1.30); GLOMERULAR FILTRATION RATE > 60.0 (>49); GLUCOSE, FASTING 82 MG/DL (80-110); POTASSIUM SERUM 3.1 MEQ/L (3.5-5.1); SODIUM LEVEL 141 MEQ/L (136-145)
[2017-03-06] MEDS ORDERED: POTASSIUM CHLORIDE 10 MEQ SR TABLET PO ONE (06:45)
[2017-03-06] MEDS: HumaLOG INSULIN (NovoLOG) PER UNIT SC SCH ×4 (07:30→19:50)
[2017-03-06 08:00] VITALS: BP 136/83
[2017-03-06] MEDS: SENOKOT S TAB PO SCH ×2 (09:00→20:07)
[2017-03-06] MEDS: POTASSIUM CHLORIDE 10 MEQ SR TABLET PO SCH ×2 (09:12→20:02)
[2017-03-06 09:51] LABS: MAGNESIUM LEVEL 2.4 MG/DL (1.8-2.4)
[2017-03-06 12:00] VITALS: BP 128/80
[2017-03-06 15:55] VITALS: BP 130/84
--- NOTE | 2017-03-06 16:04 | IPNPDOC ---
Subjective Date Seen The patient was seen on 03/06/17. Subjective Chief Complaint/HPI The patient is a 62-year-old male admitted with a reason for visit of Acute Respiratory Failure W Hypoxia. Events since last encounter Feeling better, no cp, not short of breath, wants to walk in hallway, tolerating diet, goal is to get home Constitutional: Denies: Chills, Fever Pulmonary: Denies: Dyspnea, Cough Cardiovascular: Denies: Chest Pain, Palpitations Gastrointestinal: Denies: Nausea, Vomiting, Abdominal Pain Objective Physical Examination General Exam: Positive: Alert, No Acute Distress Eye Exam: Negative: Sclera icteric Neck Exam: Positive: Supple Chest Exam: Positive: Normal air movement (b/l basilar crackles- slight), Negative: Clear to auscultation Heart Exam: Positive: Rate Normal, Irregular Rhythm Telemetry: Positive: Atrial fibrillation, Bradycardia Abdomen Exam: Positive: Normal bowel sounds, Soft, Negative: Tenderness Extremity Exam: Positive: Edema Psych Exam: Positive: Mental status NL, Mood NL, Oriented x 3 Assessment /Plan Problems (1) CHF exacerbation Status: Acute Response to Treatment: Improving Discussed With: Patient Problem Specific Plan: Monitor Clinically, Repeat Labs, Repeat Tests Problem Text: iv lasix, i/o's, daily weights echo = grade 2 diastolic dysfunction, severe TR, biatrial enlargement, suggestive of severe pulmonary hypertension patient admits to increased fluid intake over last week states had 'stomach bug' - diet exclusively soup and gatorade Symptomatically improving (2) A-fib Status: Chronic Discussed With: Patient Problem Specific Plan: Monitor Clinically Problem Text: amiodarone, beta diana xarelto for a/c episodes of bradycardia continue telemetry (3) Dyslipidemia Status: Chronic Discussed With: Patient Problem Text: lipitor (4) Hypertension Status: Chronic Discussed With: Patient Problem Specific Plan: Monitor Clinically Problem Text: norvasc, lisinopril, metoprolol suc (5) Hypothyroidism Status: Chronic Discussed With: Patient Problem Specific Plan: Monitor Clinically Problem Text: continue synthroid tsh wnl (6) JENNIFER on CPAP Status: Chronic Discussed With: Patient Problem Specific Plan: Monitor Clinically (7) CLL (chronic lymphocytic leukemia) Status: Chronic Discussed With: Patient Problem Specific Plan: Monitor Clinically, Repeat Labs Problem Text: Oncologist Dr. 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 transfer from [facility] to [place] with subsequent surgical intervention Plan/VTE VTE Prophylaxis Ordered?: Yes (xarelto) Plan Diet: Continue Current Activity: Continue Current Medications: Replete Electrolytes PO Respiratory: Wean Oxygen Anticipated Discharge: Home VS, I&O, [facility] Vital Signs/I&O Vital Signs Date Time Temp Pulse Resp B/P (MAP) Pulse Ox O2 Delivery O2 Flow Rate FiO2 03/06/17 15:55 97.3 66 18 130/84 (99) 97 NIPPV (BIPAP/CPAP) 8.0 03/05/17 16:00 91 I&O- Last 24 Hours up to 6 AM 03/06/17 06:00 Intake Total 1470 ml Output Total 4075 ml Balance -2605 ml Laboratory Data 24H LABS Laboratory Tests 2 03/05/17 16:50: Bedside Glucose (Misc Panel) 148H 03/05/17 21:44: Bedside Glucose (Misc Panel) 205H 03/06/17 05:30: White Blood Count 10.2H, Red Blood Count 3.51L, Hemoglobin 11.2L, Hematocrit 34.3L, Mean Corpuscular Volume 97.7H, Mean Corpuscular Hemoglobin 31.9, Mean Corpuscular Hemoglobin Concent 32.6, Red Cell Distribution Width 14.2, Platelet Count 209, Neutrophils (%) (Auto) 53.0, Lymphocytes (%) (Auto) 36.3, Monocytes ( %) (Auto) 3.7, Eosinophils (%) (Auto) 4.9H, Basophils (%) (Auto) 0.5, Neutrophils # (Auto) 5.4, Lymphocytes # (Auto) 3.7, Monocytes # (Auto) 0.4, Eosinophils # (Auto) 0.5, Basophils # (Auto) 0.0, Large Unclassified Cells % 1.7 , Large Unclassified Cells # 0.2, Anion Gap 6L, Glomerular Filtration Rate > 60.0, Blood Urea Nitrogen 14, Creatinine 0.72, Sodium Level 141, Potassium Level 3.1L, Chloride Level 100, Carbon Dioxide Level 35H, Calcium Level 7.8L, Magnesium Level 2.4 03/06/17 11:10: Bedside Glucose (Misc Panel) 204H CBC/BMP Laboratory Tests 03/06/17 05:30 Red Blood Count 3.51 L, Mean Corpuscular Volume 97.7 H, Mean Corpuscular Hemoglobin 31.9, Mean Corpuscular Hemoglobin Concent 32.6, Red Cell Distribution Width 14.2, Neutrophils (%) (Auto) 53.0, Lymphocytes (%) (Auto) 36.3, Monocytes (%) (Auto) 3.7, Eosinophils (%) (Auto) 4.9 H, Basophils (%) ( Auto) 0.5, Neutrophils # (Auto) 5.4, Lymphocytes # (Auto) 3.7, Monocytes # (Auto ) 0.4, Eosinophils # (Auto) 0.5, Basophils # (Auto) 0.0, Calcium Level 7.8 L Microbiology Microbiology 03/03/17 Blood Culture - Preliminary, Resulted No Growth after 48 hours. All Specime... 03/03/17 Blood Culture - Preliminary, Resulted No Growth after 48 hours. All Specime... 03/04/17 MRSA Screen - Final, Complete 03/03/17 Respiratory Virus Panel (PCR) (RYLEE) - Final, Complete 03/03/17 Influenza Virus Type A Antigen - Final, Complete 03/03/17 Influenza Virus Type B Antigen - Final, Complete ALAN CAMERON MD March 06, 2017 16:04
[2017-03-06] MEDS: METOPROLOL SUCC *XL* 25MG TAB (TopROL *XL*) PO SCH (18:11)
[2017-03-06] MEDS: CitaloPRAM (CeleXA) 20 MG TAB PO SCH (18:11)
[2017-03-06] MEDS: amLODIPine 10 MG TAB PO SCH (18:11)
[2017-03-06] MEDS: SINEMET 25-100 MG TAB PO SCH (18:11)
[2017-03-06] MEDS: ATORVASTATIN 20 MG TAB PO SCH (18:11)
[2017-03-06] MEDS: AMIODARONE 200 MG TAB (PACERONE) PO SCH (18:11)
[2017-03-06] MEDS: MULTIVITAMINS/MINERALS THERAP 1 TAB PO SCH (18:11)
[2017-03-06] MEDS: RIVAROXABAN 20 MG TAB (XARELTO) PO SCH (18:12)
[2017-03-06] MEDS: LISINOPRIL 20 MG TAB PO SCH (18:12)
[2017-03-06] MEDS: LEVEMIR (INSULIN DETEMIR) 1 UNITS/0.01ML SC SCH (20:04)
[2017-03-06 20:40] VITALS: BP 144/78
[2017-03-07] VITALS (15 sets, daily range): BP systolic 132–157; BP diastolic 70–87; O2SAT 91–98
[2017-03-07] MEDS: IPRATROPIUM 0.5MG/ALBUTEROL 2.5MG INH SOL UD 3ML (DUONEB)(J7620) NEB SCH ×4 (01:44→20:35)
[2017-03-07] MEDS: FUROSEMIDE 40 MG/4 ML VIAL (J1940) IV SCH ×3 (03:39→18:54)
[2017-03-07] MEDS: LEVOTHYROXINE 0.075 MG TAB (75 MCG) PO SCH (05:58)
[2017-03-07] MEDS: SLF 3 ML SYR IV SCH ×3 (05:58→20:47)
[2017-03-07 06:31] LABS: BASO % 0.5 % (0.0-1.0); EOS # 0.4 K/mm3 (0.0-0.50); LARGE UNSTAINED CELL # 0.2 K/mm3 (0.0-0.4); LARGE UNSTAINED CELL % 2.2 % (0.0-4.0); LYMPH # 3.7 K/mm3 (1.5-4.5); LYMPH % 33.3 % (24.0-44.0); MEAN CORPUSCULAR HEMOGLOBIN 31.9 pg (27.0-33.0); MEAN CORPUSCULAR VOLUME 96.6 fl (80.0-96.0); MONO # 0.4 K/mm3 (0.0-0.8); NEUTROPHILS # 5.8 K/mm3 (1.8-7.7); NEUTROPHILS % 56.1 % (36.0-66.0); PLATELET COUNT, AUTOMATED 226 k/mm3 (150-450); RED CELL DISTRIBUTION WIDTH 14.5 % (11.5-14.5); WHITE BLOOD COUNT 10.4 K/mm3 (4.0-10.0)
[2017-03-07 06:52] LABS: ANION GAP 5 MEQ/L (8-16); BLOOD UREA NITROGEN 13 MG/DL (7-18); CALCIUM LEVEL 8.6 MG/DL (8.8-10.2); CARBON DIOXIDE LEVEL 36 MEQ/L (21-32); CHLORIDE LEVEL 100 MEQ/L (98-107); CREATININE FOR GFR 0.72 MG/DL (0.70-1.30); GLOMERULAR FILTRATION RATE > 60.0 (>49); GLUCOSE, FASTING 68 MG/DL (80-110); POTASSIUM SERUM 3.1 MEQ/L (3.5-5.1); SODIUM LEVEL 141 MEQ/L (136-145)
[2017-03-07] MEDS: HumaLOG INSULIN (NovoLOG) PER UNIT SC SCH ×4 (07:30→20:23)
[2017-03-07] MEDS: SENOKOT S TAB PO SCH ×2 (09:00→20:47)
[2017-03-07] MEDS: POTASSIUM CHLORIDE 10 MEQ SR TABLET PO SCH ×2 (09:12→20:47)
[2017-03-07] MEDS ORDERED: POTASSIUM CHLORIDE 10 MEQ SR TABLET PO ONE (13:30)
--- NOTE | 2017-03-07 13:37 | IPNPDOC ---
Subjective Date Seen The patient was seen on 03/07/17. Subjective Chief Complaint/HPI The patient is a 62-year-old male admitted with a reason for visit of Acute Respiratory Failure W Hypoxia. Objective Physical Examination General Exam: Positive: Alert, No Acute Distress Eye Exam: Negative: Sclera icteric Neck Exam: Positive: Supple Chest Exam: Positive: Normal air movement (b/l basilar crackles- slight), Negative: Clear to auscultation Heart Exam: Positive: Rate Normal, Irregular Rhythm Telemetry: Positive: Atrial fibrillation, Bradycardia Abdomen Exam: Positive: Normal bowel sounds, Soft, Negative: Tenderness Extremity Exam: Positive: Edema Psych Exam: Positive: Mental status NL, Mood NL, Oriented x 3 Assessment /Plan Problems (1) CHF exacerbation Status: Acute Response to Treatment: Improving Discussed With: Patient Problem Specific Plan: Monitor Clinically, Repeat Labs, Repeat Tests Problem Text: iv lasix to continue, i/o's, daily weights echo = grade 2 diastolic dysfunction, severe TR, biatrial enlargement, suggestive of severe pulmonary hypertension patient admits to increased fluid intake over last week states had 'stomach bug' - diet exclusively soup and gatorade Symptomatically improving- probable dc in 24-48 hours (2) A-fib Status: Chronic Discussed With: Patient Problem Specific Plan: Monitor Clinically Problem Text: amiodarone, beta diana xarelto for a/c episodes of bradycardia continue telemetry EKG ordered Hold parameters on beta diana (3) Dyslipidemia Status: Chronic Discussed With: Patient Problem Text: lipitor (4) Hypertension Status: Chronic Discussed With: Patient Problem Specific Plan: Monitor Clinically Problem Text: norvasc, lisinopril, metoprolol suc (5) Hypothyroidism Status: Chronic Discussed With: Patient Problem Specific Plan: Monitor Clinically Problem Text: continue synthroid tsh wnl (6) JENNIFER on CPAP Status: Chronic Discussed With: Patient Problem Specific Plan: Monitor Clinically (7) CLL (chronic lymphocytic leukemia) Status: Chronic Discussed With: Patient Problem Specific Plan: Monitor Clinically, Repeat Labs Problem Text: Oncologist Dr. 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 transfer from [facility] to [place] with subsequent surgical intervention Plan/VTE VTE Prophylaxis Ordered?: Yes (xarelto) Plan Diet: Continue Current Activity: Continue Current Medications: Replete Electrolytes PO Respiratory: Wean Oxygen Anticipated Discharge: Home VS, I&O, 24H, Fishbone Vital Signs/I&O Vital Signs Date Time Temp Pulse Resp B/P (MAP) Pulse Ox O2 Delivery O2 Flow Rate FiO2 03/07/17 12:00 97.2 56 18 135/76 (95) 94 NIPPV (BIPAP/CPAP) 3.0 03/05/17 16:00 91 I&O- Last 24 Hours up to 6 AM 03/07/17 05:59 Intake Total 1400 ml Output Total 3025 ml Balance -1625 ml Laboratory Data 24H LABS Laboratory Tests 2 03/06/17 17:40: Bedside Glucose (Misc Panel) 245H 03/06/17 19:49: Bedside Glucose (Misc Panel) 141H 03/07/17 05:49: White Blood Count 10.4H, Red Blood Count 3.70L, Hemoglobin 11.8L, Hematocrit 35.8L, Mean Corpuscular Volume 96.6H, Mean Corpuscular Hemoglobin 31.9, Mean Corpuscular Hemoglobin Concent 33.0, Red Cell Distribution Width 14.5, Platelet Count 226, Neutrophils (%) (Auto) 56.1, Lymphocytes (%) (Auto) 33.3, Monocytes ( %) (Auto) 4.0, Eosinophils (%) (Auto) 4.0H, Basophils (%) (Auto) 0.5, Neutrophils # (Auto) 5.8, Lymphocytes # (Auto) 3.7, Monocytes # (Auto) 0.4, Eosinophils # (Auto) 0.4, Basophils # (Auto) 0.0, Large Unclassified Cells % 2.2 , Large Unclassified Cells # 0.2, Anion Gap 5L, Glomerular Filtration Rate > 60.0, Blood Urea Nitrogen 13, Creatinine 0.72, Sodium Level 141, Potassium Level 3.1L, Chloride Level 100, Carbon Dioxide Level 36H, Calcium Level 8.6L 03/07/17 11:32: Bedside Glucose (Misc Panel) 190H CBC/BMP Laboratory Tests 03/07/17 05:49 Red Blood Count 3.70 L, Mean Corpuscular Volume 96.6 H, Mean Corpuscular Hemoglobin 31.9, Mean Corpuscular Hemoglobin Concent 33.0, Red Cell Distribution Width 14.5, Neutrophils (%) (Auto) 56.1, Lymphocytes (%) (Auto) 33.3, Monocytes (%) (Auto) 4.0, Eosinophils (%) (Auto) 4.0 H, Basophils (%) ( Auto) 0.5, Neutrophils # (Auto) 5.8, Lymphocytes # (Auto) 3.7, Monocytes # (Auto ) 0.4, Eosinophils # (Auto) 0.4, Basophils # (Auto) 0.0, Calcium Level 8.6 L Microbiology Microbiology 03/03/17 Blood Culture - Preliminary, Resulted No Growth after 72 hours. All specime... 03/03/17 Blood Culture - Preliminary, Resulted No Growth after 72 hours. All specime... 03/04/17 MRSA Screen - Final, Complete 03/03/17 Respiratory Virus Panel (PCR) (RYLEE) - Final, Complete 03/03/17 Influenza Virus Type A Antigen - Final, Complete 03/03/17 Influenza Virus Type B Antigen - Final, Complete ALAN CAMERON MD March 07, 2017 13:37
[2017-03-07] MEDS: RIVAROXABAN 20 MG TAB (XARELTO) PO SCH (17:43)
[2017-03-07] MEDS: ATORVASTATIN 20 MG TAB PO SCH (17:43)
[2017-03-07] MEDS: CitaloPRAM (CeleXA) 20 MG TAB PO SCH (17:43)
[2017-03-07] MEDS: SINEMET 25-100 MG TAB PO SCH (17:43)
[2017-03-07] MEDS: AMIODARONE 200 MG TAB (PACERONE) PO SCH (17:44)
[2017-03-07] MEDS: amLODIPine 10 MG TAB PO SCH (17:44)
[2017-03-07] MEDS: METOPROLOL SUCC *XL* 25MG TAB (TopROL *XL*) PO SCH (17:45)
[2017-03-07] MEDS: LISINOPRIL 20 MG TAB PO SCH (17:45)
[2017-03-07] MEDS: MULTIVITAMINS/MINERALS THERAP 1 TAB PO SCH (17:45)
[2017-03-07] MEDS: LEVEMIR (INSULIN DETEMIR) 1 UNITS/0.01ML SC SCH (20:46)
[2017-03-08] VITALS: O2SAT 98
[2017-03-08 01:00] VITALS: O2SAT 97
[2017-03-08 02:00] VITALS: O2SAT 97
[2017-03-08] MEDS: IPRATROPIUM 0.5MG/ALBUTEROL 2.5MG INH SOL UD 3ML (DUONEB)(J7620) NEB SCH ×2 (02:00→07:34)
[2017-03-08 03:46] VITALS: BP 145/79
[2017-03-08] MEDS: FUROSEMIDE 40 MG/4 ML VIAL (J1940) IV SCH (03:48)
[2017-03-08] MEDS: SLF 3 ML SYR IV SCH (03:49)
[2017-03-08] MEDS: LEVOTHYROXINE 0.075 MG TAB (75 MCG) PO SCH (03:58)
[2017-03-08 04:00] VITALS: BP 145/79
[2017-03-08 06:15] LABS: BASO # 0.1 K/mm3 (0.0-0.2); BASO % 0.9 % (0.0-1.0); EOS # 0.5 K/mm3 (0.0-0.50); EOS % 3.8 % (0.0-3.0); LARGE UNSTAINED CELL # 0.2 K/mm3 (0.0-0.4); LYMPH % 39.4 % (24.0-44.0); MEAN CORPUSCULAR HEMOGLOBIN 31.7 pg (27.0-33.0); MEAN CORPUSCULAR HGB CONC 32.4 g/dl (32.0-36.5); MEAN CORPUSCULAR VOLUME 97.8 fl (80.0-96.0); MONO # 0.5 K/mm3 (0.0-0.8); PLATELET COUNT, AUTOMATED 255 k/mm3 (150-450); RED CELL DISTRIBUTION WIDTH 14.4 % (11.5-14.5)
[2017-03-08 06:17] LABS: WHITE BLOOD COUNT 12.1 K/mm3 (4.0-10.0)
[2017-03-08 06:29] LABS: ANION GAP 6 MEQ/L (8-16); BLOOD UREA NITROGEN 12 MG/DL (7-18); CALCIUM LEVEL 8.5 MG/DL (8.8-10.2); CARBON DIOXIDE LEVEL 34 MEQ/L (21-32); CHLORIDE LEVEL 102 MEQ/L (98-107); CREATININE FOR GFR 0.89 MG/DL (0.70-1.30); GLOMERULAR FILTRATION RATE > 60.0 (>49); GLUCOSE, FASTING 99 MG/DL (80-110); POTASSIUM SERUM 4.1 MEQ/L (3.5-5.1); SODIUM LEVEL 142 MEQ/L (136-145)
[2017-03-08] MEDS: HumaLOG INSULIN (NovoLOG) PER UNIT SC SCH (07:30)
[2017-03-08 08:00] VITALS: BP 126/75
[2017-03-08] MEDS: SENOKOT S TAB PO SCH (08:59)
[2017-03-08] MEDS: POTASSIUM CHLORIDE 10 MEQ SR TABLET PO SCH (08:59)
--- NOTE | 2017-03-08 19:56 | ECGEPIP ---
Stationary ECG Study [facility] Test Date: 2017-03-07 Pat Name: KEELY MELENDEZ Department: Room: [place] [address] Gender: M Textile Dyer: DYLAN : 1955 Requested By: ALAN Conde Order Number: [id number] Reading MD: Deep Salguero Measurements Intervals [place] Rate: 60 P: 81 [place]: 144 QRS: 21 QRSD: 118 T: 44 QT: 459 QTc: 461 Interpretive Statements SINUS RHYTHM NON-SPECIFIC INTRAVENTRICULAR CONDUCTION DELAY SIMILAR 03/03/17 Electronically Signed On 03-08-2017 19:56:12 EDT by Deep Salguero
--- NOTE | 2017-03-09 14:37 | DSES ---
DATE OF ADMISSION: 03/04/2017 DATE OF DISCHARGE: 03/08/2017 No specialists involved in his care. No complications of his stay. No procedures were performed during his stay. DISCHARGE DIAGNOSES: 1. Decompensated congestive heart failure with grade 2 diastolic dysfunction, preserved ventricular ejection fraction. 2. Severe pulmonary hypertension. 3. Atrial fibrillation with bradycardia. 4. Dyslipidemia. 5. Hypertension. 6. Hypothyroidism. 7. Obstructive sleep apnea, compliant with continuous positive airway pressure (CPAP). 8. Chronic lymphocytic leukemia (CLL). 9. Diabetes. 10. Parkinson's disease. 11. History of spinal cord ischemia with spinal dural and arteriovenous (AV) fistula status post intervention. The following is a summary of his hospitalization: This is a 62-year-old who had recently had gastroenteritis with diarrhea, nausea, and dry heaves, he had been unable to keep down solid food. That had been resolving, but he had been taking liquids, including [employer] soup and Gatorade. He developed increased swelling of his lower extremities, dyspnea, and orthopnea. He was found to have decompensated heart failure and was admitted to the hospitalist service. He was treated with diuresis with marked improvement. He had a 2D echocardiogram during his stay which showed grade 2 diastolic dysfunction, preserved systolic function, and possible severe pulmonary hypertension. He improved markedly with diuresis. He was noted to be bradycardic during his stay but was asymptomatic. He had no evidence of heart block. On the day of discharge, he is feeling well, he has no complaints of pain, chest pain, shortness of breath. Temperature 96.3, pulse 52, respiratory rate 20, blood pressure 126/75, 98% on room air. He has been compliant with his CPAP during his stay. Weight is 119.8 kg on the day of discharge, down from 122 kg and a maximum recorded of 129.8 kg. He is awake, appropriately interactive, pleasantly conversant. Breathing is symmetrical and rested, he is ambulating without difficulty. He has no complaints of pain, chest pain, shortness of breath. Abdomen soft, doughy, nontender. White cell count is 12.1, hemoglobin 12.1, and platelets of 255. BUN is 12, creatinine is 0.89, potassium is 4.1. Discharge instructions include the following: Followup with Dr. Price, patient is to call at home for an appointment with him in 1 week. Activity as tolerated. 2 gram sodium diet. Take his weights daily and record. Call primary care provider (PCP) with 3 pound weight gain. Continue: - amiodarone 200 mg by mouth daily - Norvasc 10 mg by mouth daily - atorvastatin 20 mg by mouth daily - Sinemet one tablet by mouth daily - vitamin D supplement - citalopram 40 mg by mouth daily - continue his home insulin dosing - Synthroid 75 mcg by mouth daily - lisinopril 20 mg by mouth daily - metoprolol succinate 25 mg by mouth daily (this should be monitored as an outpatient based on his symptomatology and his known intermittent bradycardia) - multivitamin tablet by mouth daily - Xarelto 20 mg by mouth daily - Januvia 100 mg by mouth daily
== END 2017-03-08 12:27 | disposition home or self-care (01) | DRG 291 ==
LOC: M ED 03-04 01:10 → M ED INP 03-04 03:40 → M PCU 03-04 04:47
PROVIDERS: ADMIT Internal Medicine Nephrology; ATTEND Internal Medicine
DX: I11.0 Hypertensive heart disease with heart failure (principal); J18.9 Pneumonia, unspecified organism; J96.01 Acute respiratory failure with hypoxia; C91.10 Chronic lymphocytic leukemia of B-cell type not having achieved remission; G82.20 Paraplegia, unspecified; I50.33 Acute on chronic diastolic (congestive) heart failure; E66.9 Obesity, unspecified; G47.33 Obstructive sleep apnea (adult) (pediatric); I48.2 Chronic atrial fibrillation; E03.9 Hypothyroidism, unspecified; E78.5 Hyperlipidemia, unspecified; E11.319 Type 2 diabetes mellitus with unspecified diabetic retinopathy without macular edema; M54.9 Dorsalgia, unspecified; R00.1 Bradycardia, unspecified; I27.2 Other secondary pulmonary hypertension; G20 Parkinson's disease; E11.42 Type 2 diabetes mellitus with diabetic polyneuropathy; R25.1 Tremor, unspecified; Z98.1 Arthrodesis status; Z79.4 Long term (current) use of insulin; Z79.01 Long term (current) use of anticoagulants; Z79.84 Long term (current) use of oral hypoglycemic drugs; Z88.8 Allergy status to other drugs, medicaments and biological substances; Z79.899 Other long term (current) drug therapy; Z87.74 Personal history of (corrected) congenital malformations of heart and circulatory system; Z68.37 Body mass index [BMI] 37.0-37.9, adult

== ENCOUNTER → 2019-12-10 | Outpatient (REF) | payer MEDICARE, OTHER ==
[~2019-12-10] MED LIST changes: +AMIO200T PO; +AMIO200T22 PO; -AMIO20TA PO; -AMLO10TA2 PO; +AMLO10TA5 PO; +CARB25TA9 PO; +HYDR12CA PO; -LYRI100C10 PO; +METF-839 PO; -METF500T PO; +METF500T13 PO; +METO1TAB32 PO; +PERC5TAB12 PO; -PERC5TAB6 PO; +PREG100CA PO; +TIZA4CAP PO; -TIZA4CAP3 PO; +ZOFR4TAB14 PO; -ZOFR4TAB3 PO
[2019-12-10 20:19] LABS: HEMOGLOBIN 15.2 g/dl (13.5-17.5); MEAN CORPUSCULAR HEMOGLOBIN 31.1 pg (27.0-33.0); MEAN CORPUSCULAR HGB CONC 32.3 g/dl (32.0-36.5); MEAN CORPUSCULAR VOLUME 96.1 fl (80.0-96.0); PLATELET COUNT, AUTOMATED 157 10^3/uL (150-450); RED BLOOD COUNT 4.89 10^6/uL (4.30-6.10)
[2019-12-10 20:24] LABS: WHITE BLOOD COUNT 14.7 10^3/uL (4.0-10.0)
[2019-12-10 20:42] LABS: BLOOD UREA NITROGEN 7 MG/DL (7-18); CARBON DIOXIDE LEVEL 28 MEQ/L (21-32); CHLORIDE LEVEL 105 MEQ/L (98-107); CREATININE FOR GFR 0.82 MG/DL (0.70-1.30); GLOMERULAR FILTRATION RATE > 60.0 (>49); GLUCOSE, FASTING 184 MG/DL (70-100); POTASSIUM SERUM 3.7 MEQ/L (3.5-5.1); SODIUM LEVEL 142 MEQ/L (136-145)
[2019-12-10 21:02] LABS: EOSINOPHILS 1 % (0-3); LYMPHOCYTES 62 % (16-44); MONOCYTES 1 % (0-5); NEUTROPHILS 35 % (28-66); PLATELET ESTIMATE NORMAL (NORMAL)
== END ==
LOC: M LABDRWAD 19:05
PROVIDERS: ATTEND Internal Medicine Cardiovascular Disease
DX: I48.19 Other persistent atrial fibrillation (principal); Z79.84 Long term (current) use of oral hypoglycemic drugs; Z79.899 Other long term (current) drug therapy